=== PATIENT | female | born 1935 | race Caucasian/White ===

== ENCOUNTER 2016-10-28 14:53 | Inpatient (IN) | payer OTHER ==
--- NOTE | 2016-10-28 15:22 | EDPHY ---
H & P Time Seen by Provider: 10/28/16 14:59 HPI/ROS: Chief complaint. Fall, hip pain HPI. 81-year-old female , here by EMS, had a trip and fall this afternoon. She was getting out of her car and caring heavy comforter. The grade of the driveway was little bit different then flat and she lost her balance and fell over landing on her right hip. Did not strike her head. No chest pain shortness of breath or neck pain. No other injuries other than pain to the right hip. Patient has been unable to ambulate since her fall. Increased pain right hip with range of motion. Last time she ate was at noon ROS Constitutional. no fever/chills, no weakness Eyes. no problems with vision ENT. no sore throat, no nasal drainage Cardiovascular. no chest pain Respiratory. no shortness of breath, no cough Abdominal. no abdominal pain, no nausea/vomiting, no diarrhea . no problems urinating MS. Right hip pain Skin. no rash Lymph. no swollen glands Neuro. no headache, no dizziness, no difficulty walking or with speech Past Medical/Surgical History: Denies past medical history. No meds and no allergies Social History: , nonsmoker, no alcohol Smoking Status: Never smoked Physical Exam: General Appearance: Alert well-developed female moderate distress vital signs are stable though initial blood pressure 161/145. Current blood pressure 153/ 100 Eyes: Pupils equal and round no pallor or injection. ENT, Mouth: Mucous membranes are moist. Respiratory: There are no retractions, lungs are clear to auscultation. Cardiovascular: Regular rate and rhythm. Gastrointestinal: Abdomen is soft and nontender, no masses, bowel sounds normal. Neurological: Awake and alert, sensory and motor exams grossly normal. Skin: Warm and dry, no rashes. Musculoskeletal: Neck is supple nontender. Extremities right lower extremity is shortened. Pain to palpation over the greater trochanter. Increased pain with range of motion. Distal motor vascular sensitivity is intact Psychiatric: Patient is oriented X 3, there is no agitation. Constitutional: Initial Vital Signs Temperature (C) 36.7 C 10/28/16 15:05 Heart Rate 75 10/28/16 15:05 Respiratory Rate 24 H 10/28/16 15:05 Blood Pressure 161/145 H 10/28/16 15:05 O2 Sat (%) 100 10/28/16 15:05 O2 Delivery Mode Room Air Allergies/Adverse Reactions: No Known Allergies Allergy (Unverified 10/28/16 15:05) Home Medications: Medication Instructions Recorded Herbals/Supplements -Info Only 1 ea PO DAILY 10/28/16 Multivitamins [Multivitamin (*)] 1 each PO DAILY 10/28/16 Medical Decision Making - Diagnostics EKG Interpretation: EKG interpreted by me shows normal sinus rhythm with normal interval. There is left axis deviation. QRS is otherwise normal there is no significant ST elevation or depression. No arrhythmia. The rate is 65 Imaging Results: Imaging Impressions Hip X-Ray 10/28/16 15:17 Impression: 1. Acute right hip fracture. 2. This patient would benefit from a DEXA scan and consideration for bone building pharmacologic intervention. Chest X-Ray 10/28/16 15:48 Impression: 1. Suspect airways disease. 2. No acute contraindication to surgery identified. 3. See above report for additional findings. X-ray right hip is evaluated by me shows an acute intertrochanteric fracture One-view chest x-ray interpreted by me is normal Procedures: IV normal saline. Fentanyl for pain. Zofran for nausea ED Course/Re-evaluation: Re-evaluation 3:45 p.m. the patient, her daughter, and I discussed imaging study results, treatment plan including need for admission and surgery. They expressed understanding and agreement Patient's labs are reviewed and normal other than a sodium of 130 I have consulted and discussed case with Dr. Rivera, orthopedist, who sees the patient in the emergency department. I consulted and discussed case Dr. Fang, hospitalist, who agrees to the admission Differential Diagnosis: I considered fracture, dislocation, contusion. Patient has an intertrochanteric hip fracture - Data Points Medications Given: Discontinued Medications Fentanyl (Sublimaze) 100 mcg IVP EDNOW ONE Stop: 10/28/16 15:49 Last Admin: 10/28/16 16:24 Dose: 100 mcg Sodium Chloride (Ns) 1,000 mls @ 0 mls/hr IV ONCE ONE PRN Reason: Wide Open Stop: 10/28/16 15:48 Last Admin: 10/28/16 16:25 Dose: 1,000 mls Ondansetron HCl (Zofran) 4 mg IVP EDNOW ONE Stop: 10/28/16 15:48 Last Admin: 10/28/16 16:25 Dose: 4 mg Departure - Departure Disposition: [facility] Inpatient Acute Clinical Impression: Closed right hip fracture Qualifiers: Encounter type: initial encounter Qualified Code(s): S72.001A - Fracture of unspecified part of neck of right femur, initial encounter for closed fracture Condition: Fair
[2016-10-28] MEDS ORDERED: ONDANSETRON 4 MG/2 ML VIAL IVP ONE (15:47)
[2016-10-28] MEDS ORDERED: NS 1,000 ML IV ONE ×2 (15:47→23:43)
[2016-10-28] MEDS ORDERED: fentaNYL 100 MCG/2 ML INJ IVP ONE (15:48)
[2016-10-28 16:20] LABS: % IMMATURE GRANULYOCYTES 0.3 % (0.0-1.1); ABSOLUTE IMMATURE GRANULOCYTES 0.02 10^3/uL (0.00-0.10); ADD DIFF? NO; ADD MORPH? NO; ADD SCAN? NO; ATYPICAL LYMPHOCYTE FLAG 10 (0-99); FRAGMENT RBC FLAG 0 (0-99); HEMATOCRIT 34.7 % (38.0-47.0); HEMOGLOBIN 11.8 g/dL (12.6-16.3); LEFT SHIFT FLG 0 (0-99); LIPEMIA HEMOLYSIS FLAG 90 (0-99); MEAN CELL HEMOGLOBIN 28.9 pg (27.9-34.1); MEAN PLATELET VOLUME 9.1 fL (8.7-11.7); PLATELET CLUMPS FLAG 90 (0-99); PLATELET COUNT 196 10^3/uL (150-400); RED BLOOD CELL COUNT 4.08 10^6/uL (4.18-5.33); RED CELL DISTRIBUTION WIDTH 13.7 % (11.5-15.2)
[2016-10-28 16:31] LABS: INR 0.94 (0.83-1.16); PROTIME(PATIENT) 12.5 SEC (12.0-15.0)
[2016-10-28 16:32] LABS: APTT 26.3 SEC (23.0-38.0)
[2016-10-28 16:50] LABS: ANION GAP 7 mEq/L (8-16); CALCIUM 9.6 mg/dL (8.5-10.4); CARBON DIOXIDE 23 mEq/l (22-31); CHLORIDE 100 mEq/L (97-110); CREATININE 0.6 mg/dL (0.6-1.0); GLOMERULAR FILTRATION RATE > 60; GLUCOSE 82 mg/dL (70-100); POTASSIUM 4.2 mEq/L (3.5-5.2); SODIUM 130 mEq/L (134-144)
--- NOTE | 2016-10-28 16:53 | PDGENHP ---
History and Physical History and Physical: HISTORY AND PHYSICAL CC:Right hip pain after fall HISTORY: This is a generally healthy 81-year-old woman was walking up a steep driveway earlier today when she lost balance from carrying a heavy blanket off to 1 side and she fell onto her right side landing on her hip. Since that time she has had right-sided hip pain and has been unable to stand. She was transported here by ambulance and x-rays here of shown a right hip fracture. She does not think she injured anything else has no headache neck pain back pain rib pain abdominal pain or pain in the limbs otherwise. There was no lightheadedness no syncopal type symptoms no neurologic symptoms. There are no cardiac or pulmonary symptoms. She is not been feverish. She has not felt sick in any other way. She has no history of prior falls but does tell me that if she does not keep up with drinking of fluids she will have some orthostatic lightheadedness. This is chronic for her. She has no history of fractures in the past. PREOPERATIVE RISK ASSESSMENT: No cardiac, pulmonary, renal, neurologic, hepatic, thromboembolic disease is or symptoms She is only moderately active due to severe degenerative knee arthritis bilaterally with pain inhibiting walking. She has no history of bleeding problems, no medicine allergies. Her only previous surgery was a tonsillectomy as a young child. She has had a colonoscopy and D and C ROS: A comprehensive 10 system review revealed no other significant findings PAST MEDICAL HISTORY: her daughter thinks she may have had some anemia at 1 point but the patient does not remember this She is otherwise quite healthy and takes only some vitamin supplements without any other medicines FAMILY MEDICAL HISTORY: her mother lived to be 101 years old, had Alzheimer's disease SOCIAL HISTORY: she is . 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 She has never smoked does not use alcohol. She has a daughter Melia who is here and [place]. She moved here to be near [place]. The daughter is the patient's surrogate decision maker if it is needed. MEDICATIONS: The patients list has been reconciled by our clinical pharmacist in the EMR. I have reviewed the list and ordered appropriate medicines. PHYSICAL EXAMINATION: Vital Signs: Normal without fever Examination: General: alert, oriented, good mentation, relaxed Skin: warm, dry, good color, no rash HEENT: normal Neck: no mass or jvd Resps: relaxed Lungs: clear breath sounds Heart: regular, no murmur Abdomen: soft, nondistended, nontender, +BS, no mass Upper Extremities: normal Lower Extremities: right leg externally rotated and shortened compared to left but she has good neurovascular function down distally to the toes. 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 ASSESSMENT: -Right hip fracture after a fall, mechanical fall -Her surgical and anesthesia risks are no worse than average, and recommendation is to proceed with surgery when able to get scheduled; no need for further medical evaluations or treatments before that - DVT prophylaxis -Delirium prophylaxis measures -I had reviewed with the daughter that the patient should follow up with her primary care visit care physician after her surgery regarding anti resorptive or other bone protection strategies I have reviewed the patient's case in detail with Dr. Rajput
--- NOTE | 2016-10-28 16:57 | CPEKG ---
Heart Rate: 65 RR Interval: 923 P-R Interval: 160 QRSD Interval: 86 QT Interval: 436 QTC Interval: 454 P Atwood: 67 QRS Atwood: -46 T Wave Atwood: 63 EKG Severity - OTHERWISE NORMAL ECG - EKG Impression: SINUS RHYTHM EKG Impression: LEFT AXIS DEVIATION EKG Impression: LOW VOLTAGE IN FRONTAL LEADS Electronically Signed By: Dionicio Rajput 28-Oct-2016 17:42:23
[2016-10-28] MEDS ORDERED: ONDANSETRON 4 MG/2 ML VIAL IVP PRN (16:59)
[2016-10-28] MEDS ORDERED: ONDANSETRON DISINTEGRATING 4 MG TAB PO PRN (16:59)
[2016-10-28] MEDS ORDERED: HYDROmorphONE/DILAUDID 1 MG/ML SYR IVP PRN (16:59)
[2016-10-28] MEDS ORDERED: BUPIVACAINE 0.5% 30 ML SDV ONE (17:02)
[2016-10-28] MEDS ORDERED: fentaNYL 100 MCG/2 ML INJ IVP PRN (17:16)
[2016-10-28] MEDS ORDERED: CEFAZOLIN 1 GM/DEXTROSE/50 ML BAG IV ONE (17:51)
[2016-10-28] MEDS ORDERED: fentaNYL 100 MCG/2 ML INJ ONE ×3 (17:55→19:29)
[2016-10-28] MEDS ORDERED: PROPOFOL/EMULSION 500 MG/50 ML BOTTLE IV ONE (17:56)
--- NOTE | 2016-10-28 19:03 | POSTOPPROG ---
Post Op Note Date of Operation: 10/28/16 Surgeon: Vic Rivera Anesthesia: GET(General Endotracheal) Pre-op Diagnosis: R pertrochanteric femur fx Post-op Diagnosis: Same Procedure: R TFN Inf/Abcess present in the surg proc area at time of surgery?: No EBL: Minimal
[2016-10-28] MEDS ORDERED: D5W 1/2 NS W/ 20 KCl/L 1,000 ML IV SCH (19:15)
--- NOTE | 2016-10-28 19:16 | PDIAF ---
- Diagnosis Code Status: Full Code - Medication Management Discharge Medications: Medications to Continue on Transfer Herbals/Supplements -Info Only 1 ea PO DAILY 10/28/16 [Last Taken Unknown] Multivitamins [Multivitamin (*)] 1 each PO DAILY 10/28/16 [Last Taken Unknown] Discharge Medications: Refer to the Discharge Home Medication list for PRN reason. - Orders Wound Care Instructions: Keep sterile dressing over wound. OK to use tegaderm ( op site) to enable washing while keeping wound dry Sutures/Michael Site: Righ thigh Date to Remove Sutures/[place]: 11/08/16 Activity/Weight Bearing Restrictions: WBAT - Follow Up Care Current Providers and Referrals: Vic Rivera MD [Medical Doctor] -
--- NOTE | 2016-10-28 19:34 | GOP ---
[f rep st] OPERATIVE REPORT DATE OF OPERATION: 10/28/2016 SURGEON: Vic Rivera MD ANESTHESIA: General PREOPERATIVE DIAGNOSIS: Right peritrochanteric femur fracture. POSTOPERATIVE DIAGNOSIS: Right peritrochanteric femur fracture. PROCEDURE PERFORMED: 1. Intramedullary nail fixation right peritrochanteric femur fracture (TFN). 2. Intraoperative use of fluoroscopy. FINDINGS: ESTIMATED BLOOD LOSS: Minimal. INDICATIONS: Patient is an 81-year-old, limited community ambulator. She sustained a fall on the d ay of surgery resulting in a right peritrochanteric femur fracture. Based on the displaced unstable nature of the injury, it was recommended operative treatment consisting of intramedullary nail fixa tion be pursued. The patient acknowledged she understood the potential risks of the operation inclu ding but not limited to bleeding, infection, neurovascular damage leading to loss of limb or limb fu nction, malunion, nonunion, need for hardware removal, pain or functional limitations despite operat jackeline treatment, and anesthetic risks. She acknowledged she understood the potential risks, planned p rocedure, and postoperative plan well and had all her questions answered prior to surgery. She gave her consent for the operative procedure. DESCRIPTION OF PROCEDURE: Patient brought in the operating room after IV antibiotics were administe red. General anesthetic was administered. She was transferred to the radiolucent traction table. Her right leg was placed in a well-padded traction boot. Her left leg was placed in a well-padded, well leg [place]. Gentle manipulation was performed. Fluoroscopic views confirmed anatomic reductio n of the fracture on AP and lateral images. The right hip was then prepped and draped in standard s terile fashion. A longitudinal incision was made proximal to the greater trochanter. Sharp dissect ion was carried through the gluteal fascia. A guide pin from the trochanteric fixation nail was sofia bryce in the tip of the greater trochanter, and position was confirmed fluoroscopically to be optimal. The cannulated reamer was then utilized to create a starting point. An 11 mm trochanteric fixatio n nail (130 degree blade) was inserted into place at the optimal depth. Another incision was then m erika. The guide pin was then inserted from the lateral aspect of the femur into the central aspect o f the femoral head on AP and lateral planes utilizing the aiming device. After perforating the late ral cortex with the step drill a 90 mm spiral blade was impacted into place. The blade was locked p roximally through the nail. Distal locking bolt was then placed utilizing the targeting device. Fl uoroscopic views confirmed favorable reduction and implant position. Attention was directed towards closure. The gluteal fascia was closed with 2-0 Vicryl suture interr upted fashion, subcutaneous tissue closed with 3-0 Vicryl suture interrupted fashion, skin closed wi th skin nadja. 0.5% Marcaine without epinephrine was injected in the wound sites. Wound was dres sed with sterile Adaptic, 4 x 4, and ABD. Patient tolerated the procedure well, was taken to the re covery room, extubated in stable condition postoperatively. All sponge, needle, and instrument coun ts were reported as being correct. DRAINS: None. COMPLICATIONS: None. PLAN: Patient will be admitted for medical management and gait training. She will be weightbearing as tolerated on her operative extremity. /[id number]/MODL
--- NOTE | 2016-10-28 19:39 | GCON ---
[f rep st] CONSULTATION DATE OF CONSULTATION: 10/28/2016 REASON FOR CONSULTATION: Right hip injury. HISTORY OF PRESENT ILLNESS: The patient is an 81-year-old limited community ambulator who sustained a fall, resulting in right h ip pain and inability to weightbear. EXAMINATION: Relative to her consultation: The patient is holding her hip in an externally rotated position. She did have some shortening, but part of this was due to a knee flexion contracture. H er distal neurovascular exam is grossly intact. IMAGING: AP and lateral radiographs of her hip show evidence of a peritrochanteric right femur frac ture. IMPRESSION: Peritrochanteric right femur fracture. PLAN: It is recommended that operative treatment consisting of intramedullary nail fixation be purs ued as soon as OR availability and patient condition allows. /[id number]/MODL
[2016-10-28] MEDS: NS 1,000 ML IV SCH (21:47)
[2016-10-29 00:24] LABS: % IMMATURE GRANULYOCYTES 0.4 % (0.0-1.1); ABSOLUTE IMMATURE GRANULOCYTES 0.05 10^3/uL (0.00-0.10); ADD DIFF? NO; ADD MORPH? NO; ADD SCAN? NO; ATYPICAL LYMPHOCYTE FLAG 0 (0-99); FRAGMENT RBC FLAG 0 (0-99); HEMATOCRIT 28.9 % (38.0-47.0); HEMOGLOBIN 9.9 g/dL (12.6-16.3); LEFT SHIFT FLG 0 (0-99); LIPEMIA HEMOLYSIS FLAG 90 (0-99); MEAN CELL HEMOGLOBIN 29.1 pg (27.9-34.1); MEAN CELL HEMOGLOBIN CONCENTR. 34.3 g/dL (32.4-36.7); MEAN PLATELET VOLUME 9.2 fL (8.7-11.7); PLATELET CLUMPS FLAG 0 (0-99); PLATELET COUNT 166 10^3/uL (150-400); RED CELL DISTRIBUTION WIDTH 13.8 % (11.5-15.2)
[2016-10-29 00:52] LABS: ANION GAP 7 mEq/L (8-16); CALCIUM 8.5 mg/dL (8.5-10.4); CARBON DIOXIDE 21 mEq/l (22-31); CHLORIDE 106 mEq/L (97-110); CREATININE 0.6 mg/dL (0.6-1.0); GLOMERULAR FILTRATION RATE > 60; GLUCOSE 107 mg/dL (70-100); POTASSIUM 4.1 mEq/L (3.5-5.2); SODIUM 134 mEq/L (134-144)
[2016-10-29 05:25] LABS: % IMMATURE GRANULYOCYTES 0.6 % (0.0-1.1); ABSOLUTE IMMATURE GRANULOCYTES 0.06 10^3/uL (0.00-0.10); ADD DIFF? NO; ADD MORPH? NO; ADD SCAN? NO; ATYPICAL LYMPHOCYTE FLAG 0 (0-99); FRAGMENT RBC FLAG 0 (0-99); HEMATOCRIT 27.7 % (38.0-47.0); HEMOGLOBIN 9.3 g/dL (12.6-16.3); LEFT SHIFT FLG 0 (0-99); LIPEMIA HEMOLYSIS FLAG 80 (0-99); MEAN CELL HEMOGLOBIN 29.2 pg (27.9-34.1); MEAN CELL HEMOGLOBIN CONCENTR. 33.6 g/dL (32.4-36.7); MEAN CELL VOLUME 87.1 fL (81.5-99.8); MEAN PLATELET VOLUME 9.3 fL (8.7-11.7); PLATELET CLUMPS FLAG 0 (0-99); PLATELET COUNT 161 10^3/uL (150-400); RED BLOOD CELL COUNT 3.18 10^6/uL (4.18-5.33); RED CELL DISTRIBUTION WIDTH 13.8 % (11.5-15.2)
[2016-10-29 05:40] LABS: ANION GAP 6 mEq/L (8-16); CALCIUM 8.6 mg/dL (8.5-10.4); CARBON DIOXIDE 23 mEq/l (22-31); CHLORIDE 102 mEq/L (97-110); CREATININE 0.6 mg/dL (0.6-1.0); GLOMERULAR FILTRATION RATE > 60; GLUCOSE 108 mg/dL (70-100); POTASSIUM 4.4 mEq/L (3.5-5.2); SODIUM 131 mEq/L (134-144)
--- NOTE | 2016-10-29 06:50 | SOAPPROG ---
SOAP Progress Note Assessment/Plan: Assessment: R Pertrochanteric femur fx, S/P TFN Resting comfortably Some hip pain Rosario po R thigh - dressing intact, no D/C leg length /rotation symmetric Distal NVI Plan: OOB/PT Likely SNF transfer (OK from ortho standpoint when medically stable) 10/29/16 06:48 Objective: Vital Signs Temp Pulse Resp BP Pulse Ox 36.8 C 84 18 103/51 L 98 10/29/16 04:00 10/29/16 04:00 10/29/16 04:00 10/29/16 04:00 10/29/16 04:00 Laboratory Results 10/29/16 04:55 10/29/16 04:55 10/28/16 10/29/16 10/30/16 05:59 05:59 05:59 Intake Total 3400 Output Total 470 Balance 2930 PT 12.5 SEC (12.0-15.0) 10/28/16 16:15 INR 0.94 (0.83-1.16) 10/28/16 16:15 ICD10 Worksheet Patient Problems: Problems Problem Status Onset Closed right hip fracture Acute
[2016-10-29] MEDS: ENOXAPARIN 40 MG/0.4 ML SYR SC SCH (08:52)
[2016-10-29] MEDS: MULTIVITAMINS 1 EACH TAB PO SCH (08:57)
[2016-10-29] MEDS: ACETAMINOPHEN 325 MG TAB PO PRN ×2 (08:59→18:25)
--- NOTE | 2016-10-29 10:07 | HOSPPROG ---
Hospitalist Progress Note Assessment/Plan: Patient is an 81-year-old female without any significant past medical history. She was walking up a steep driveway when she lost her balance and fell landing on the right side of her hip. Today is my 1st encounter with the patient. Chart reviewed * right hip fracture status post nail fixation POD #1 * hypotension blood pressure had a significant drop with ambulation this morning will continue IV fluids/give a bolus now patient has a hx of this * anemia. In the postoperative setting will follow * hyponatremia secondary to hypovolemia will follow *DVT prophylaxis:LMWH Plan: repeat labs in a.m., fluid bolus, reviewed patient's care w RN. Subjective: Nora has no c/o pain. Said she has hx of her blood pressure dropping easily ever since she moved to [place]. Objective: Vital Signs Temp Pulse Resp BP Pulse Ox 36.8 C 73 16 95/51 L 99 10/29/16 07:51 10/29/16 07:51 10/29/16 07:51 10/29/16 09:20 10/29/16 07:51 Laboratory Results 10/29/16 04:55 10/29/16 04:55 10/28/16 10/29/16 10/30/16 05:59 05:59 05:59 Intake Total 3400 Output Total 470 Balance 2930 PT 12.5 SEC (12.0-15.0) 10/28/16 16:15 INR 0.94 (0.83-1.16) 10/28/16 16:15 - Physical Exam Constitutional: no apparent distress, appears nourished, not in pain Eyes: PERRL Ears, Nose, Mouth, Throat: hearing normal Cardiovascular: regular rate and rhythym Respiratory: no respiratory distress Gastrointestinal: normoactive bowel sounds Skin: warm, other (right hip w minimal swelling), No normal color (pale) Musculoskeletal: no muscle tenderness Neurologic: AAOx3 Psychiatric: interacting appropriately, not anxious, not encephalopathic ICD10 Worksheet Patient Problems: Problems Problem Status Onset Closed right hip fracture Acute
[2016-10-29] MEDS: NS 1,000 ML IV SCH (10:28)
[2016-10-29] MEDS ORDERED: NS 250 ML IV ONE ×4 (10:43→16:30)
[2016-10-29 16:36] LABS: HEMATOCRIT 22.1 % (38.0-47.0); HEMOGLOBIN 7.5 g/dL (12.6-16.3)
[2016-10-30] MEDS: ACETAMINOPHEN 325 MG TAB PO PRN ×4 (04:12→21:09)
[2016-10-30 05:12] LABS: % IMMATURE GRANULYOCYTES 0.2 % (0.0-1.1); ABSOLUTE IMMATURE GRANULOCYTES 0.01 10^3/uL (0.00-0.10); ADD DIFF? NO; ADD MORPH? NO; ADD SCAN? NO; ATYPICAL LYMPHOCYTE FLAG 0 (0-99); FRAGMENT RBC FLAG 0 (0-99); HEMATOCRIT 24.1 % (38.0-47.0); HEMOGLOBIN 8.2 g/dL (12.6-16.3); LEFT SHIFT FLG 0 (0-99); LIPEMIA HEMOLYSIS FLAG 90 (0-99); MEAN CELL HEMOGLOBIN 30.3 pg (27.9-34.1); MEAN CELL VOLUME 88.9 fL (81.5-99.8); MEAN PLATELET VOLUME 9.7 fL (8.7-11.7); PLATELET CLUMPS FLAG 10 (0-99); PLATELET COUNT 129 10^3/uL (150-400); RED BLOOD CELL COUNT 2.71 10^6/uL (4.18-5.33); RED CELL DISTRIBUTION WIDTH 14.1 % (11.5-15.2)
[2016-10-30 05:36] LABS: ANION GAP 4 mEq/L (8-16); CALCIUM 7.9 mg/dL (8.5-10.4); CARBON DIOXIDE 23 mEq/l (22-31); CHLORIDE 107 mEq/L (97-110); CREATININE 0.7 mg/dL (0.6-1.0); GLOMERULAR FILTRATION RATE > 60; GLUCOSE 80 mg/dL (70-100); POTASSIUM 4.1 mEq/L (3.5-5.2); SODIUM 134 mEq/L (134-144)
[2016-10-30 05:46] LABS: VITAMIN D 25-HYDROXY TOTAL 33.7 ng/mL (30-100)
--- NOTE | 2016-10-30 06:07 | SOAPPROG ---
SOAP Progress Note Assessment/Plan: Assessment: R Pertrochanteric femur fx, S/P TFN Resting comfortably Some hip pain Rosario po R thigh - dressing intact, no D/C leg length /rotation symmetric Distal NVI Plan: OOB/PT Likely SNF transfer (OK from ortho standpoint when medically stable) 10/29/16 06:48 10/30/16 06:05 Pain tolerable No SOB Rosario po Dressing intact. No D/C NV Unchanged Con't OOB/PT SNF transfer Ok per ortho when medically stable Decreased Hct not typical for pertroch fx. Con't to observe for further decrease Objective: Vital Signs Temp Pulse Resp BP Pulse Ox 36.8 C 74 18 127/70 H 95 10/29/16 21:50 10/30/16 04:00 10/30/16 04:00 10/30/16 04:00 10/30/16 04:00 Laboratory Results 10/30/16 04:42 10/30/16 04:42 10/29/16 10/30/16 10/31/16 05:59 05:59 05:59 Intake Total 3400 3800 Output Total 470 1250 Balance 2930 2550 PT 12.5 SEC (12.0-15.0) 10/28/16 16:15 INR 0.94 (0.83-1.16) 10/28/16 16:15 ICD10 Worksheet Patient Problems: Problems Problem Status Onset Closed right hip fracture Acute
[2016-10-30] MEDS: MULTIVITAMINS 1 EACH TAB PO SCH (07:48)
[2016-10-30] MEDS: ENOXAPARIN 40 MG/0.4 ML SYR SC SCH (07:48)
[2016-10-30] MEDS ORDERED: POLYETHYLENE GLYCOL 3350 17 GM PKT PO PRN (10:02)
[2016-10-30] MEDS ORDERED: BISACODYL 10 MG SUPP PR PRN (10:02)
[2016-10-30] MEDS ORDERED: MAGNESIUM HYDROXIDE 30 ML UDCUP PO PRN (10:02)
[2016-10-30] MEDS ORDERED: LACTULOSE 20 GM/30 ML UDCUP PO PRN (10:02)
[2016-10-30] MEDS: oxyCODONE IR 5 MG TAB PO PRN ×3 (10:22→21:09)
--- NOTE | 2016-10-30 12:58 | HOSPPROG ---
Hospitalist Progress Note Assessment/Plan: Patient is an 81-year-old female without any significant past medical history. She was walking up a steep driveway when she lost her balance and fell landing on the right side of her hip. Today is my 1st encounter with the patient. Chart reviewed * right hip fracture status post nail fixation POD #2 * hypotension blood pressure had a significant drop with ambulation pt says this is chronic patient has a hx of this cont to follow * anemia. In the postoperative setting will follow check labs in am * hyponatremia secondary to hypovolemia stable *DVT prophylaxis:LMWH Plan: repeat labs in a.m., reviewed patient's care w RN. Subjective: Feeling well today. More pain then yesterday. No other specific issues. Objective: Vital Signs Temp Pulse Resp BP Pulse Ox 36.9 C 80 18 111/70 93 10/30/16 07:32 10/30/16 07:32 10/30/16 07:32 10/30/16 07:32 10/30/16 07:32 Laboratory Results 10/30/16 04:42 10/30/16 04:42 10/29/16 10/30/16 10/31/16 05:59 05:59 05:59 Intake Total 3400 3800 Output Total 470 1250 1150 Balance 2930 2550 -1150 PT 12.5 SEC (12.0-15.0) 10/28/16 16:15 INR 0.94 (0.83-1.16) 10/28/16 16:15 - Physical Exam Constitutional: no apparent distress, appears nourished, not in pain Eyes: PERRL, anicteric sclera, EOMI Ears, Nose, Mouth, Throat: moist mucous membranes, ears appear normal, hard of hearing Cardiovascular: No JVD, No tachycardia, No edema Respiratory: no respiratory distress, no rales or rhonchi, reduced air movement Gastrointestinal: No tenderness, No ascites, No guarding Skin: warm, normal color, No erythema Musculoskeletal: pain with ROM, muscular tenderness, generalized weakness Neurologic: AAOx3 Psychiatric: interacting appropriately, not anxious, not encephalopathic ICD10 Worksheet Patient Problems: Problems Problem Status Onset Closed right hip fracture Acute
[2016-10-30] MEDS: SENNOSIDES/DOCUSATE SODIUM TAB PO SCH (19:51)
[2016-10-31] MEDS: oxyCODONE IR 5 MG TAB PO PRN ×3 (02:45→14:05)
[2016-10-31 05:29] LABS: HEMATOCRIT 24.7 % (38.0-47.0); HEMOGLOBIN 8.3 g/dL (12.6-16.3)
[2016-10-31 05:58] LABS: % SATURATION 9 % (20-55); TOTAL IRON BINDING CAPACITY 225 ug/dL (260-490)
--- NOTE | 2016-10-31 06:03 | SOAPPROG ---
SOAP Progress Note Assessment/Plan: Assessment: R Pertrochanteric femur fx, S/P TFN Resting comfortably Some hip pain Rosario po R thigh - dressing intact, no D/C leg length /rotation symmetric Distal NVI Plan: OOB/PT Likely SNF transfer (OK from ortho standpoint when medically stable) 10/29/16 06:48 10/30/16 06:05 Pain tolerable No SOB Rosario po Dressing intact. No D/C NV Unchanged Con't OOB/PT SNF transfer Ok per ortho when medically stable Decreased Hct not typical for pertroch fx. Con't to observe for further decrease 10/31/16 06:02 Con't progress with PT Hip pain tolerable Dressing intact . Min pain with hip ROM OOB/PT SNF transfer when medically stable F/U 3 wks Objective: Vital Signs Temp Pulse Resp BP Pulse Ox 36.9 C 84 16 112/60 95 10/31/16 00:00 10/31/16 00:00 10/31/16 00:00 10/31/16 00:00 10/31/16 00:00 Laboratory Results 10/31/16 04:18 10/30/16 04:42 10/30/16 10/31/16 11/01/16 05:59 05:59 05:59 Intake Total 3800 1050 Output Total 1250 2050 Balance 2550 -1000 PT 12.5 SEC (12.0-15.0) 10/28/16 16:15 INR 0.94 (0.83-1.16) 10/28/16 16:15 ICD10 Worksheet Patient Problems: Problems Problem Status Onset Closed right hip fracture Acute
[2016-10-31 06:25] LABS: FERRITIN - BCH 89.9 ng/mL (6.2-264.0)
[2016-10-31 07:44] VITALS: BP 116/69; PULSE 75; RESP 12; TEMP 98.9; O2SAT 90
[2016-10-31] MEDS: MULTIVITAMINS 1 EACH TAB PO SCH (08:02)
[2016-10-31] MEDS: ENOXAPARIN 40 MG/0.4 ML SYR SC SCH (08:03)
[2016-10-31] MEDS ORDERED: SODIUM FERRIC GLUCONAT/SUCROSE 125 MG in NS 100 ML IV ONE (08:04)
[2016-10-31] MEDS: SENNOSIDES/DOCUSATE SODIUM TAB PO SCH (08:05)
[2016-10-31] MEDS ORDERED: LUTEIN PO SCH (09:00)
[2016-10-31] MEDS ORDERED: BILBERRY EXTRACT PO SCH (09:00)
--- NOTE | 2016-10-31 09:12 | PDIAF ---
- Diagnosis Diagnosis: hip fx Code Status: Full Code - Medication Management Discharge Medications: Medications to Continue on Transfer Herbals/Supplements -Info Only 1 ea PO DAILY 10/28/16 [Last Taken Unknown] Multivitamins [Multivitamin (*)] 1 each PO DAILY 10/28/16 [Last Taken Unknown] Acetaminophen [Tylenol 325mg (*)] 650 mg PO Q4HRS PRN #0 tab 10/31/16 [Last Taken Unknown] Enoxaparin [Lovenox 40 MG (*)] 40 mg SC DAILY syr 10/31/16 [Last Taken Unknown] Polyethylene Glycol 3350 [Miralax 17 gm (*)] 17 gm PO DAILY PRN #0 pkt 10/31/16 [Last Taken Unknown] Sennosides/Docusate Sodium [Senokot-S] 1 - 2 tab PO BID tab 10/31/16 [Last Taken Unknown] oxyCODONE IR [Oxycodone Ir (*)] 5 - 10 mg PO Q3HRS PRN #0 tab 10/31/16 [Last Taken Unknown] Discharge Medications: Refer to the Discharge Home Medication list for PRN reason. - Orders Services needed: Registered Nurse, Physical Therapy, Occupational Therapy Diet Recommendation: no restrictions on diet Wound Care Instructions: Keep sterile dressing over wound. OK to use tegaderm ( op site) to enable washing while keeping wound dry Sutures/Michael Site: Righ thigh Date to Remove Sutures/[place]: 11/08/16 Activity/Weight Bearing Restrictions: WBAT - Follow Up Care Current Providers and Referrals: Vic Rivera MD [Medical Doctor] -
--- NOTE | 2016-10-31 12:14 | GDS ---
[f rep st] DISCHARGE SUMMARY DISCHARGE DIAGNOSES: 1. Right hip fracture. 2. Hypotension. 3. Anemia. 4. Hyponatremia. CONSULTATION: Dr. Rivera of Orthopedics. STUDIES AND PROCEDURES DONE: Intramedullary nail fixation of the right femur fracture. PHYSICAL EXAM: GENERAL: The patient is alert. VITAL SIGNS: Afebrile at 37.2, pulse is 75, respir atory rate 12, blood pressure is 116/69, she is saturating 90% on room air. I have seen and evaluat ed the patient on the day of discharge. HOSPITAL COURSE: The patient is an 81-year-old female, who suffered a mechanical fall. She present ed to the emergency room with complaints of hip pain. She was evaluated and diagnosed with: 1. Right hip fracture. During this hospitalization, she received nail fixation by Dr. Rivera. She is postoperative day 3 from her surgical intervention and doing well. She will require further str engthening, conditioning in a rehabilitation facility. 2. Intermittent hypotension. This is a chronic problem for the patient. She is stable currently a nd has been encouraged to increase her fluid intake. 3. Anemia, this is in the postoperative setting, as well as iron deficiency. She has received a do se of IV iron prior to disposition, and will likely require oral iron replacement in the outpatient setting. This should be followed by her primary care physician in the next few weeks. 4. Hyponatremia. Likely secondary to hypovolemia and within limits. DISPOSITION: The patient will be discharged to [facility] for further inpatient rehabilitation and strengthening. There are no pending studies. DISCHARGE MEDICATIONS: Please refer to EMR form. I spent greater than 35 minutes in the care, coordination, and management of this patient's disposit ion. /[id number]/MODL
== END 2016-10-31 14:34 | DRG 481 ==
LOC: EDUNIT# → F3N 20:06
PROVIDERS: ADMIT Internal Medicine; ATTEND Internal Medicine
PROC: 0QS606Z Reposition Right Upper Femur with Intramedullary Internal Fixation Device, Open Approach (ICD-10-PCS; principal; 2016-10-28 18:00)
DX: S72.101A Unspecified trochanteric fracture of right femur, initial encounter for closed fracture (principal); W01.0XXA Fall on same level from slipping, tripping and stumbling without subsequent striking against object, initial encounter; Y92.008 Other place in unspecified non-institutional (private) residence as the place of occurrence of the external cause; I95.9 Hypotension, unspecified; E87.1 Hypo-osmolality and hyponatremia; D64.9 Anemia, unspecified
CPT/HCPCS: 96374; 97116-GP; 97162-GP; 97165-GO; 97530-GO; 97530-GP; 97535-GO; C1713; C1769; G8978-GP-CK; G8979-GP-CJ; G8987-GO-CJ; G8988-GO-CI; J0690; J1650; J2405; J2704; J2916; J3010; P9016